=== PATIENT | male | born 1960 | race Caucasian/White ===

== ENCOUNTER 2016-10-13 05:40 | Emergency (ER) | payer MEDICARE, OTHER ==
[~2016-10-13] VITALS: Ht 175.3 cm; Wt 72.5 kg
[2016-10-13 05:42] VITALS: BP 142/79; PULSE 93; RESP 18; TEMP 97.8; O2SAT 97
--- NOTE | 2016-10-13 06:08 | PD ---
HPI Chief Complaint: Skin Problem Time Seen by Provider: 06:08 Travel History International Travel<30 days: No Contact w/Intl Traveler<30days: No Traveled to known affect area: No History of Present Illness HPI 56-year-old male presents to emergency department for evaluation of calluses on his feet. Patient states that he walks all over the country and would like to know why he has these. He states that his skin feels that though it is sloughing off. Reports pain in his feet. No injury. Believes that his bone structure of his feet may be changing. Denies any other symptoms at this time. History Past Medical Histgory Medical History: Denies Significant Hx Social History Alcohol Use: Yes (" MUCH POSSIBLE") Tobacco Use: Yes (" MUCH POSSIBLE") Allergies-Medications (Allergen,Severity, Reaction): Coded Allergies: No Known Allergies (Unverified , 10/13/16) Review of Systems Except as stated in HPI: all other systems reviewed are Neg Physical Exam Narrative GENERAL: Well-nourished, well-developed male patient, ambulatory with a nonantalgic gait, no acute distress SKIN: Warm and dry. No significant erythema or edema. There are calluses on the plantar service of the feet. No blister formation. HEAD: Normocephalic. EYES: No scleral icterus. No injection or drainage. NECK: Supple, trachea midline. No JVD or lymphadenopathy. CARDIOVASCULAR: Regular rate and rhythm without murmurs, gallops, or rubs. MUSCULOSKELETAL: No cyanosis, or edema. Distal pulses are palpable. Cap refill is within normal limits. Data Data Last Documented VS Vital Signs Date Time Temp Pulse Resp B/P Pulse Ox O2 Delivery O2 Flow Rate FiO2 10/13/16 05:42 97.8 93 18 142/79 97 Room Air MDM Medical Screen Exam Complete: Yes Emergency Medical Condition: No Differential Diagnosis Foot callus/foot pain Narrative Course 56-year-old male presents to emergency department for evaluation of calluses on his feet. Patient states that [place] walks all [place] the [place]. I have explained to him that the calluses are likely from long distance walking and the issues that he is wearing. I advised that he follow-up with a outsewer as this is been an ongoing issue for the patient. There is no sign of injury or trauma. The feet are neurovascularly intact. The patient then questions how a woman can tell him what is going on with his body. Then questions if he "masturbates in the bathroom would he have a period" and asked if I would record it. He then asked if I believed in adamant need. I explained the patient that this is inappropriate and has nothing to do with why he is here in emergency department. Being that these are calluses on his feet that have been there for an extended amount of time there are no urgent or emergent needs medical intervention identified. A medical screening exam was performed: At the time of evaluation the presenting medical condition was determined not to be of an emergent nature. The patient was given the option of receiving additional care, but declined. Patient was given options for additional community resources from which to obtain care. The Patient Has Been advised to seek medical attention for their presenting complaint. The patient has been advised to return to the ER at any time if an emergent condition develops. Primary Impression: Callus of foot Additional Impression: Encounter for medical screening examination Condition: Stable Griselda Hagan Oct 13, 2016 06:08
[2016-10-14] MEDS ORDERED: DEME50TA PO (01:52)
== END 2016-10-13 08:26 | disposition left against medical advice (07) ==
LOC: NEPB 05:40
DX: L84 Corns and callosities (principal)
CPT/HCPCS: 99281

== ENCOUNTER 2016-10-14 00:06 | Emergency (ER) | payer MEDICARE, OTHER ==
[~2016-10-14] VITALS: Ht 170.2 cm; Wt 75.0 kg
[2016-10-14 00:08] VITALS: BP 119/72; PULSE 94; RESP 16; TEMP 98; O2SAT 96
[2016-10-14] MEDS ORDERED: DEME50TA PO (01:52)
[2016-10-14] MEDS ORDERED: SODIUM CHLOR 0.9% 1000 ML INJ 1,000 ML IV ONE (02:00)
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
[2016-10-14 02:30] LABS: AUTOMATED NEUTROPHIL # 5.4 TH/MM3 (1.8-7.7); BASOPHIL # 0.1 TH/MM3 (0-0.2); BASOPHIL % 0.9 % (0.0-2.0); EOSINOPHIL # 0.2 TH/MM3 (0-0.4); EOSINOPHIL % 2.3 % (0.0-4.0); HEMATOCRIT 41.9 % (39.0-51.0); HEMO FLAGS DIFF FINAL; LYMPH % 22.5 % (9.0-44.0); LYMPHOCYTE # 1.9 TH/MM3 (1.0-4.8); MEAN CORPUSCULAR HEMOGLOBIN 30.4 PG (27.0-34.0); MEAN CORPUSCULAR HGB CONC 34.1 % (32.0-36.0); MONO % 9.4 % (0.0-8.0); NEUT % 64.9 % (16.0-70.0); PLATELET COUNT 161 TH/MM3 (150-450); RED CELL DISTRIBUTION WIDTH 13.6 % (11.6-17.2); WHITE BLOOD COUNT 8.4 TH/MM3 (4.0-11.0)
--- NOTE | 2016-10-14 02:42 | RADRPT ---
EXAM DATE/TIME: 10/14/2016 02:13 [facility] COMPARISON: No previous studies available for comparison. INDICATIONS : Chest pain. MEDICAL HISTORY : None. SURGICAL HISTORY : None. ENCOUNTER: Initial ACUITY: 1 day PAIN SCORE: 6/10 LOCATION: Bilateral chest FINDINGS: A single view of the chest demonstrates the lungs to be symmetrically aerated without evidence of mas s, infiltrate or effusion. The cardiomediastinal contours are unremarkable. Osseous structures are intact. CONCLUSION: 1. No acute findings. Minimal dependent atelectasis in the lungs. Be Ferrari MD on October 14, 2016 at 2:38 Board Certified Radiologist. This report was verified electronically.
[2016-10-14 02:44] LABS: ANION GAP 5 MEQ/L (5-15); BICARBONATE 28.1 MEQ/L (21.0-32.0); BLOOD UREA NITROGEN 9 MG/DL (7-18); CHLORIDE 106 MEQ/L (98-107); GLOMERULAR FILTRATION RATE 110 ML/MIN (>89); MAGNESIUM 2.4 MG/DL (1.5-2.5); POTASSIUM 3.9 MEQ/L (3.5-5.1); SODIUM (NA) 139 MEQ/L (136-145)
[2016-10-14 04:50] VITALS: BP 117/82
--- NOTE | 2016-10-14 12:36 | EKG ---
Date Performed: 10/14/2016 Time Performed: 03:30:02 PTAGE: 56 years EKG: Sinus rhythm WITH OCCASIONAL VENTRICULAR PREMATURE COMPLEXES MINIMAL VOLTAGE CRITERIA FOR LVH, CONSIDER NORMAL VA RIANT MODERATE T-WAVE ABNORMALITY, CONSIDER ANTERIOR ISCHEMIA ABNORMAL ECG NO PREVIOUS TRACING DOCTOR: Brendan Way Interpretating Date/Time 10/14/2016 12:31:17
== END 2016-10-14 05:04 | disposition home or self-care (01) ==
LOC: NEPE 00:06
DX: G62.9 Polyneuropathy, unspecified (principal); R94.31 Abnormal electrocardiogram [ECG] [EKG]
CPT/HCPCS: 71010; 80048; 80320; 83735; 85025; 93005; 99284; J7030